=== PATIENT | female | born 1975 | race Caucasian/White ===

== ENCOUNTER 2018-08-02 19:52 | Emergency (ER) | payer MEDICAID ==
[~2018-08-02] VITALS: Ht 154.9 cm; Wt 106.0 kg
[~2018-08-02 19:52] MED LIST: HYDR-3498 PO; IBUP-1542 PO; IBUP800T48 PO
[2018-08-02 20:05] VITALS: Ht 154.9 cm; Wt 106.0 kg
[2018-08-02] MEDS ORDERED: ACETAMINOPHEN 500 MG TAB PO STA (20:53)
[2018-08-02] MEDS ORDERED: AZITHROMYCIN 500 MG TAB PO ONE (23:00)
[2018-08-02] MEDS ORDERED: CEFTRIAXONE 250 MG INJ IM ONE (23:00)
--- NOTE | 2018-08-02 23:17 | ERD ---
ER Documentation Chief Complaint Chief Complaint pelvic/vaginal pain since last night HPI 42-year-old female who presents with 2 days of pelvic pain and dysuria and increased urinary frequency. She also noticed some abnormal discharge when she went to the bathroom just now to give us a urine sample. Denies fever. No nausea or vomiting or diarrhea. Pain is worse when she walks. She does admit to recent unprotected sex approximately 2 weeks ago. ROS All systems reviewed and are negative except as per history of present illness. Medications Home Meds Active Scripts Ibuprofen* (Motrin*) 600 Mg Tab, 600 MG PO Q8 for 10 Days, #30 TAB 0 Refills Prov:ANNA LING PA-C 10/26/15 Ibuprofen* (Motrin*) 800 Mg Tab, 800 MG PO Q6H PRN for PAIN AND OR ELEVATED TEMP, #30 TAB Prov:SHAHAB NGUYEN MD 08/14/14 Hydrocodone Bit-Acetaminophen* ([place]*) 5-325 Mg Tab, 1 TAB PO Q6 PRN for PAIN, #20 TAB Prov:SHAHAB NGUYEN MD 08/14/14 Allergies Allergies: Coded Allergies: No Known Drug Allergy (Verified Allergy, Unknown, 08/14/14) PMhx/Soc History of Surgery: Yes ( 1999 2005 2008) Anesthesia Reaction: No Hx Neurological Disorder: No Hx Respiratory Disorders: No Hx Cardiac Disorders: No Hx Psychiatric Problems: No Hx Miscellaneous Medical Probl: No Hx Alcohol Use: No Hx Substance Use: No Hx Tobacco Use: No Smoking Status: Never smoker FmHx Family History: No diabetes Physical Exam Vitals Vital Signs Date Temp Pulse Resp B/P (MAP) Pulse Ox O2 O2 Flow FiO2 Time Delivery Rate 08/02/18 100.5 21:03 08/02/18 100.5 103 22 151/80 97 20:05 (103) Physical Exam INITIAL VITAL SIGNS: Reviewed by me GENERAL: Awake, alert and oriented x 4, well appearing, nontoxic, speaking in full sentences. No acute distress HEAD: Atraumatic NECK: Supple. No masses. Full range of motion. No meningismus. No midline tenderness. RESPIRATORY: Clear to auscultation bilaterally. Symmetric chest wall rise. No wheezing or rales. No accessory muscle use. CV: Regular rate and rhythm. No murmurs, rubs, or gallops. ABDOMEN: Soft, non-distended. Nontender. Negative [place]. Negative [place] point tenderness. No CVA tenderness bilaterally. No guarding. No rebound. Pelvic Exam: Chief Nuclear Medicine Technologist present pharmacy technician program director Teresa Talpa Abdomen: Nontender External Genitalia: Normal Skin Speculum: Normal vaginal mucosa, white discharge Bimanual: No adnexal masses or tenderness, No CMT Result Diagram: 08/02/18211008/02/182110 Results 24 hrs Laboratory Tests Test 08/02/18 21:00 08/02/18 21:11 08/02/18 21:24 Urine Color JAVI Urine Clarity CLOUDY Urine pH 5.0 Urine Specific [place] 1.031 Urine Ketones TRACE mg/dL Urine Nitrite NEGATIVE mg/dL Urine Bilirubin NEGATIVE mg/dL Urine Urobilinogen 1+ mg/dL Urine Leukocyte Esterase 3+ Derek/ul Urine Microscopic RBC 19 /HPF Urine Microscopic WBC > 182 /HPF Urine Squamous Epithelial Cells MODERATE /HPF Urine Bacteria FEW /HPF Urine Mucus MANY /HPF Urine Hemoglobin 2+ mg/dL Urine Glucose NEGATIVE mg/dL Urine Total Protein 1+ mg/dl White Blood Count 14.3 10^3/ul Red Blood Count 5.28 10^6/ul Hemoglobin 15.2 g/dl Hematocrit 46.8 % Mean Corpuscular Volume 88.6 fl Mean Corpuscular Hemoglobin 28.8 pg Mean Corpuscular 32.5 g/dl Hemoglobin Concent Red Cell Distribution Width 13.2 % Platelet Count 285 10^3/UL Mean Platelet Volume 10.0 fl Immature Granulocytes % 0.300 % Neutrophils % 78.6 % Lymphocytes % 16.5 % Monocytes % 3.3 % Eosinophils % 0.9 % Basophils % 0.4 % Nucleated Red Blood Cells % 0.0 /100WBC Immature Granulocytes # 0.040 10^3/ul Neutrophils # 11.2 10^3/ul Lymphocytes # 2.4 10^3/ul Monocytes # 0.5 10^3/ul Eosinophils # 0.1 10^3/ul Basophils # 0.1 10^3/ul Nucleated Red Blood Cells # 0.0 10^3/ul Sodium Level 141 mmol/L Potassium Level 3.9 mmol/L Chloride Level 105 mmol/L Carbon Dioxide Level 28 mmol/L Anion Gap 8 Blood Urea Nitrogen 11 mg/dl Creatinine 0.66 mg/dl Est Glomerular Filtrat > 60 mL/min Rate mL/min Glucose Level 128 mg/dl Calcium Level 9.5 mg/dl Total Bilirubin 0.6 mg/dl Direct Bilirubin 0.00 mg/dl Indirect Bilirubin 0.6 mg/dl Aspartate Amino 22 IU/L Transf (AST/SGOT) Alanine 17 IU/L Aminotransferase (ALT/SGPT) Alkaline Phosphatase 99 IU/L Total Protein 8.0 g/dl Albumin 4.4 g/dl Globulin 3.60 g/dl Albumin/Globulin Ratio 1.22 Lipase 70 U/L POC Beta HCG, Qualitative NEGATIVE Current Medications Medications Dose Sig/Amos Start Time Status Last (Trade) Ordered Route PRN Stop Time Admin Dose Reason Admin 1,000 mg ONCE STAT 08/02/18 DC 08/02/18 Acetaminophen PO 20:53 21:03 (Tylenol 08/02/18 20:55 Tab) Ceftriaxone 250 mg ONCE ONCE 08/02/18 DC Sodium IM 23:00 (Rocephin) 08/02/18 23:01 1,000 mg ONCE ONCE 08/02/18 DC Azithromycin PO 23:00 (Zithromax) 08/02/18 23:01 Procedures/MDM Patient has dysuria pelvic pain and low-grade temperature. She was given Tylenol here. Urine is positive for urinary tract infection and wet mount shows clue cells. She has no cervical motion tenderness on exam. She does admit to recent unprotected sex 2 weeks ago and is possible this is sexually transmitted in nature, gonorrhea chlamydia cultures are pending. She was given Rocephin and azithromycin here and discharged with Cipro and Flagyl. Reviewed case with Dr. Powers who agrees with plan. Patient counseled regarding my diagnostic impression and care plan. Prior to discharge all questions answered. Pt agrees with treatment plan and understands strict return precautions. Pt is instructed to follow up with primary care provider within 24-48 hours. Precautionary instructions provided including instructions to return to the ER if not improving or for any worsening or changing symptoms or concerns. Departure Diagnosis: Primary Impression: Cystitis Additional Impression: Bacterial vaginosis Condition: Stable JOSIE RODRÍGUEZ PA-C August 02, 2018 23:17
[2018-08-02] MEDS ORDERED: METR500T PO (23:19)
[2018-08-02] MEDS ORDERED: CIPR500T4 PO (23:19)
[2018-08-02 23:45] VITALS: BP 134/78; PULSE 95; RESP 18
== END 2018-08-02 23:45 | disposition home or self-care (01) ==
LOC: FTE 19:52
DX: N30.90 Cystitis, unspecified without hematuria (principal); N76.0 Acute vaginitis
CPT/HCPCS: 36415; 76830; 76856; 80053; 81001; 81025; 83690; 85025; 87081; 87086; 87210; 87591; 96372; J0696; Z7502; Z7610

== ENCOUNTER 2018-11-24 15:41 | Emergency (ER) | payer MEDICAID ==
[~2018-11-24] VITALS: Ht 160 cm; Wt 89.0 kg
[~2018-11-24 15:41] MED LIST changes: +BEN25 PO; +CIPR500T4 PO; +METR500T PO; +NAPR-985 PO; +PRED20TA PO; +TRIA15CR55 TOP
[2018-11-24 15:44] VITALS: BP 159/79; PULSE 53; RESP 18; Ht 160 cm; Wt 89.0 kg
== END 2018-11-24 15:59 | disposition home or self-care (01) ==
LOC: E/R 15:41
DX: S80.862A Insect bite (nonvenomous), left lower leg, initial encounter (principal); R03.0 Elevated blood-pressure reading, without diagnosis of hypertension; W57.XXXA Bitten or stung by nonvenomous insect and other nonvenomous arthropods, initial encounter; Y92.9 Unspecified place or not applicable; Z87.891 Personal history of nicotine dependence
CPT/HCPCS: 99283

== ENCOUNTER 2018-12-22 08:26 | Emergency (ER) | payer MEDICAID ==
[~2018-12-22] VITALS: Ht 154.9 cm; Wt 110.0 kg
[2018-12-22 08:31] VITALS: BP 155/66; PULSE 89; RESP 18; Ht 154.9 cm; Wt 110.0 kg
== END 2018-12-22 09:54 | disposition home or self-care (01) ==
LOC: FTE 08:26
DX: S60.221A Contusion of right hand, initial encounter (principal); X58.XXXA Exposure to other specified factors, initial encounter; Y92.9 Unspecified place or not applicable